=== PATIENT | female | born 1935 | race Hispanic/Latino ===

== ENCOUNTER 2017-08-03 10:06 | Observation (INO) | payer MEDICARE, MEDICAID ==
[2017-08-03] VITALS (9 sets, daily range): BP systolic 111–143; BP diastolic 35–78
[~2017-08-03] VITALS: Ht 160 cm; Wt 83.0 kg
[~2017-08-03 10:06] MED LIST: ACCUPRIL5 MG; ALLEGRA-D 2424 HOUR PO; AMOXICILLIN/CL500 MG PO; ANTIVERT12.5 MG PO; ANTIVERT25 MG PO; ARICEPT10 MG PO; AUGMENTIN500TAB PO; B COMPLETE PO; CRESTOR10 MG PO; DIAZEPAM2 M1 PO; DITROPAN PO; FENTANYL50 MCG/HR TD; FERROUS SULF325 M2 PO; FLEXERIL PO; GABAPENTIN300 MG PO; GLIPIZIDE ER5 MG PO; GLIPIZIDE XL5 MG PO; HYDROCO/APAP1 TA9 PO; KEFLEX500 MG OR; KEFLEX500 MG PO; LAMISIL250 MG PO; LISINOPRIL10 MG PO; LORTAB 5 PO; LORTAB 7.5 PO; LORTAB 7.57.5 MG PO; MECLIZINE25 MG PO; MEDDOSEPAK PO; METFORMIN500 M1 OR; METFORMIN500 M1 PO; METFORMIN500 MG PO; MIRALAX3350 N1 OR; MOTRIN800 MG/TAB PO; NICOTINE T21 MG/241 TD; NORCO1 TA2 PO; NOVOLOG100 IU/1 M SC; OMEPRAZOLE40 MG PO; OXYBUTYNIN5 MG PO; PHENERGAN SUP12.5 MG PO; PHENERGAN25 MG/TAB PO; PREDNISODT10 PO; PREDNISONE10 MG PO; PREDNISONE20 MG PO; PREVACID30 M2 PO; PREVPAC PO; PRILOSEC40 MG PO; PROMETHAZIN1 PO; PROTONIX40 M2 PO; RANITIDINE150 M1 PO; SIMVASTATIN80 MG OR; TEMAZEPAM30 MG PO; TIZANIDINE4 MG PO; TRAMADOL HCL50 MG OR; TRAMADOL HCL50 MG PO; TRUETEST STRIPS VI; VITAMIN C500 M1 PO; XANAX0.5 MG PO; XARELTO15 MG PO; XARELTO20 MG PO; ZOFRAN ODT8 MG PO; ZOFRAN4 M1 PO; [UNRECOGNIZED DRUG - OTHER] XX
[2017-08-03] MEDS ORDERED: HUMALOG100 UNIT/M SC (10:45)
[2017-08-03] MEDS ORDERED: GLIPIZIDE5 MG PO (10:47)
[2017-08-03] MEDS ORDERED: TEMAZEPAM15 MG PO (10:49)
[2017-08-03 11:05] LABS: HEMATOCRIT 26.4 % (37.0-47.0); HEMOGLOBIN 7.7 g/dl (12.0-16.0); IMMATURE GRANULOCYTES 0.5 % (0.0-1.0); MEAN CORPUSCULAR HGB 19.8 pG CALC (26.0-32.0); MEAN CORPUSCULAR HGB CONC 29.2 g/L CALC (32.0-36.0); NEUT# 7.63 thou/uL (2.00-7.15); RED BLOOD COUNT 3.88 mill/uL (4.20-5.60); RED CELL DISTRI WIDTH 18.7 % (11.5-15.5)
[2017-08-03 11:25] LABS: ANION GAP 14 (6-22 (CALC)); BUN 23 mg/dL (8-23); BUN/CREATININE RATIO 28 (12-20 (CALC)); CALCIUM 8.8 mg/dL (8.4-10.2); CARBON DIOXIDE 27 mmol/l (22-30); CHLORIDE 106 mmol/l (95-108); CREATININE 0.8 mg/dL (0.5-1.0); GFR > 60 ML/MIN (>=60 (CALC)); GFR FOR AFR.AMER. > 60 ML/MIN (>=60 (CALC)); GLUCOSE 208 mg/dL (82-115); POTASSIUM 4.6 mmol/l (3.5-5.1); SODIUM 143 mmol/l (137-146)
[2017-08-03 16:57] LABS: URINE BILIRUBIN - DIPSTICK NEGATIVE (NEGATIVE); URINE BLOOD DIPSTICK NEGATIVE (NEGATIVE); URINE CLARITY CLEAR; URINE COLOR YELLOW; URINE GLUCOSE - DIPSTICK NEGATIVE (NEGATIVE); URINE KETONE NEGATIVE (NEGATIVE); URINE LEUK ESTERASE NEGATIVE (Negative); URINE NITRITE - DIPSTICK NEGATIVE (Negative); URINE PROTEIN - DIPSTICK NEGATIVE (NEG-TRACE); URINE SPECIFIC GRAVITY 1.025; URINE UROBILINOGEN - DIPSTICK 0.2 E.U./dL (0.2)
[2017-08-04 05:15] VITALS: BP 117/66
[2017-08-04 05:34] LABS: ALBUMIN 3.6 g/dL (3.2-5.0); ALKALINE PHOSPHATASE 92 u/l (38-126); ANION GAP 13 (6-22 (CALC)); BILIRUBIN, TOTAL 0.7 mg/dL (0.0-1.4); BUN 19 mg/dL (8-23); BUN/CREATININE RATIO 29 (12-20 (CALC)); CALCIUM 8.7 mg/dL (8.4-10.2); CALCULATED LDLCHOLESTEROL 125 mg/dL (62-129 (CALC)); CARBON DIOXIDE 26 mmol/l (22-30); CHLORIDE 107 mmol/l (95-108); CHOLESTEROL HDL RATIO 5.1 (<4.4 (CALC)); CREATININE 0.7 mg/dL (0.5-1.0); GFR > 60 ML/MIN (>=60 (CALC)); GFR FOR AFR.AMER. > 60 ML/MIN (>=60 (CALC)); GLUCOSE 98 mg/dL (82-115); HDL CHOLESTEROL 36 mg/dL (>=40); POTASSIUM 4.5 mmol/l (3.5-5.1); SGOT/AST 22 u/l (9-36); SGPT/ALT 29 u/l (11-66); SODIUM 141 mmol/l (137-146); TOTAL CHOLESTEROL 185 mg/dl (0-199); TOTAL PROTEIN 6.9 g/dL (6.3-8.2); TOTAL TRIGLYCERIDES 115 mg/dl (30-149); VLDL CHOLESTROL 23 mg/dl (0-48 (CALC))
[2017-08-04 05:37] LABS: HEMATOCRIT 34.4 % (37.0-47.0); HEMOGLOBIN 10.9 g/dl (12.0-16.0); IMMATURE GRANULOCYTES 0.7 % (0.0-1.0); MEAN CORPUSCULAR HGB 22.8 pG CALC (26.0-32.0); MEAN CORPUSCULAR HGB CONC 31.7 g/L CALC (32.0-36.0); NEUT# 7.99 thou/uL (2.00-7.15); RED BLOOD COUNT 4.78 mill/uL (4.20-5.60); RED CELL DISTRI WIDTH 21.9 % (11.5-15.5)
[2017-08-04 07:43] VITALS: BP 128/60
[2017-08-04 15:30] VITALS: BP 100/50
[2017-08-04 16:14] LABS: HEMATOCRIT 36.3 % (37.0-47.0); HEMOGLOBIN 11.1 g/dl (12.0-16.0); IMMATURE GRANULOCYTES 0.6 % (0.0-1.0); MEAN CELL VOLUME 73.5 fL CALC (80.0-100.0); MEAN CORPUSCULAR HGB 22.5 pG CALC (26.0-32.0); MEAN CORPUSCULAR HGB CONC 30.6 g/L CALC (32.0-36.0); NEUT# 9.39 thou/uL (2.00-7.15); RED BLOOD COUNT 4.94 mill/uL (4.20-5.60); RED CELL DISTRI WIDTH 22.5 % (11.5-15.5)
[2017-08-04 16:48] LABS: ANION GAP 13 (6-22 (CALC)); BUN 19 mg/dL (8-23); BUN/CREATININE RATIO 28 (12-20 (CALC)); CALCIUM 8.5 mg/dL (8.4-10.2); CARBON DIOXIDE 26 mmol/l (22-30); CHLORIDE 107 mmol/l (95-108); CREATININE 0.7 mg/dL (0.5-1.0); GFR > 60 ML/MIN (>=60 (CALC)); GFR FOR AFR.AMER. > 60 ML/MIN (>=60 (CALC)); GLUCOSE 193 mg/dL (82-115); POTASSIUM 4.2 mmol/l (3.5-5.1); SODIUM 142 mmol/l (137-146)
[2017-08-04 19:19] VITALS: BP 131/68
[2017-08-05] VITALS: BP 137/68
[2017-08-05 05:58] LABS: HEMATOCRIT 31.8 % (37.0-47.0); HEMOGLOBIN 9.6 g/dl (12.0-16.0); IMMATURE GRANULOCYTES 0.6 % (0.0-1.0); MEAN CELL VOLUME 74.1 fL CALC (80.0-100.0); MEAN CORPUSCULAR HGB 22.4 pG CALC (26.0-32.0); MEAN CORPUSCULAR HGB CONC 30.2 g/L CALC (32.0-36.0); NEUT# 8.16 thou/uL (2.00-7.15); RED BLOOD COUNT 4.29 mill/uL (4.20-5.60); RED CELL DISTRI WIDTH 22.5 % (11.5-15.5)
[2017-08-05 06:19] VITALS: BP 119/71
[2017-08-05 06:26] LABS: ANION GAP 12 (6-22 (CALC)); BUN 14 mg/dL (8-23); BUN/CREATININE RATIO 19 (12-20 (CALC)); CALCIUM 8.6 mg/dL (8.4-10.2); CARBON DIOXIDE 24 mmol/l (22-30); CHLORIDE 110 mmol/l (95-108); CREATININE 0.7 mg/dL (0.5-1.0); GFR > 60 ML/MIN (>=60 (CALC)); GFR FOR AFR.AMER. > 60 ML/MIN (>=60 (CALC)); GLUCOSE 93 mg/dL (82-115); POTASSIUM 4.4 mmol/l (3.5-5.1); SODIUM 142 mmol/l (137-146)
[2017-08-05 08:25] VITALS: BP 141/66
[2017-08-05 15:59] VITALS: BP 130/66
[2017-08-05 16:37] LABS: HEMOGLOBIN 9.4 g/dl (12.0-16.0); IMMATURE GRANULOCYTES 0.6 % (0.0-1.0); MEAN CELL VOLUME 73.6 fL CALC (80.0-100.0); MEAN CORPUSCULAR HGB 22.3 pG CALC (26.0-32.0); MEAN CORPUSCULAR HGB CONC 30.3 g/L CALC (32.0-36.0); NEUT# 8.39 thou/uL (2.00-7.15); RED BLOOD COUNT 4.21 mill/uL (4.20-5.60); RED CELL DISTRI WIDTH 22.8 % (11.5-15.5)
[2017-08-05 16:51] LABS: ANION GAP 11 (6-22 (CALC)); BUN 15 mg/dL (8-23); BUN/CREATININE RATIO 18 (12-20 (CALC)); CALCIUM 8.6 mg/dL (8.4-10.2); CARBON DIOXIDE 24 mmol/l (22-30); CHLORIDE 108 mmol/l (95-108); CREATININE 0.9 mg/dL (0.5-1.0); GFR 60 ML/MIN (>=60 (CALC)); GFR FOR AFR.AMER. > 60 ML/MIN (>=60 (CALC)); GLUCOSE 123 mg/dL (82-115); POTASSIUM 4.5 mmol/l (3.5-5.1); SODIUM 139 mmol/l (137-146)
[2017-08-05 18:45] VITALS: BP 143/79
[2017-08-06 04:28] VITALS: BP 138/60
[2017-08-06 06:53] LABS: HEMATOCRIT 34.1 % (37.0-47.0); HEMOGLOBIN 10.4 g/dl (12.0-16.0); IMMATURE GRANULOCYTES 0.5 % (0.0-1.0); MEAN CELL VOLUME 74.1 fL CALC (80.0-100.0); MEAN CORPUSCULAR HGB 22.6 pG CALC (26.0-32.0); MEAN CORPUSCULAR HGB CONC 30.5 g/L CALC (32.0-36.0); NEUT# 9.89 thou/uL (2.00-7.15); RED BLOOD COUNT 4.6 mill/uL (4.20-5.60); RED CELL DISTRI WIDTH 23.2 % (11.5-15.5)
[2017-08-06 07:12] LABS: ALBUMIN 3.6 g/dL (3.2-5.0); ALKALINE PHOSPHATASE 90 u/l (38-126); ANION GAP 13 (6-22 (CALC)); BILIRUBIN, TOTAL 0.7 mg/dL (0.0-1.4); BUN 11 mg/dL (8-23); BUN/CREATININE RATIO 15 (12-20 (CALC)); CALCIUM 8.9 mg/dL (8.4-10.2); CARBON DIOXIDE 27 mmol/l (22-30); CHLORIDE 107 mmol/l (95-108); CREATININE 0.7 mg/dL (0.5-1.0); GFR > 60 ML/MIN (>=60 (CALC)); GFR FOR AFR.AMER. > 60 ML/MIN (>=60 (CALC)); GLUCOSE 132 mg/dL (82-115); POTASSIUM 4.3 mmol/l (3.5-5.1); SGOT/AST 25 u/l (9-36); SGPT/ALT 35 u/l (11-66); SODIUM 142 mmol/l (137-146); TOTAL PROTEIN 6.9 g/dL (6.3-8.2)
[2017-08-06 08:45] VITALS: BP 145/73
== END 2017-08-06 10:15 | disposition home or self-care (01) ==
LOC: MS2 10:06
PROVIDERS: ADMIT Internal Medicine Geriatric Medicine; ATTEND Internal Medicine Geriatric Medicine
PROC: 30233N1 Transfusion of Nonautologous Red Blood Cells into Peripheral Vein, Percutaneous Approach (ICD-10-PCS; principal; 2017-08-03)
PROC: 30233N1 Transfusion of Nonautologous Red Blood Cells into Peripheral Vein, Percutaneous Approach (ICD-10-PCS; 2017-08-03)
DX: D64.9 Anemia, unspecified (principal); I25.10 Atherosclerotic heart disease of native coronary artery without angina pectoris; I10 Essential (primary) hypertension; J44.9 Chronic obstructive pulmonary disease, unspecified; K27.9 Peptic ulcer, site unspecified, unspecified as acute or chronic, without hemorrhage or perforation; F03.90 Unspecified dementia, unspecified severity, without behavioral disturbance, psychotic disturbance, mood disturbance, and anxiety; E11.9 Type 2 diabetes mellitus without complications; R11.2 Nausea with vomiting, unspecified; R10.9 Unspecified abdominal pain; R19.5 Other fecal abnormalities; R06.02 Shortness of breath; Z95.0 Presence of cardiac pacemaker; Z86.711 Personal history of pulmonary embolism; Z79.01 Long term (current) use of anticoagulants
CPT/HCPCS: P9016

== ENCOUNTER 2018-04-01 16:47 | Observation (INO) | payer MEDICARE, MEDICAID ==
[~2018-04-01] VITALS: Ht 160 cm; Wt 84.0 kg
[~2018-04-01 16:47] MED LIST changes: +GLIPIZIDE5 MG PO; +HUMALOG100 UNIT/M SC; +TEMAZEPAM15 MG PO
[2018-04-01 17:42] LABS: HEMATOCRIT 29.6 % (37.0-47.0); HEMOGLOBIN 8.8 g/dl (12.0-16.0); IMMATURE GRANULOCYTES 0.6 % (0.0-1.0); MEAN CELL VOLUME 72.7 fL CALC (80.0-100.0); MEAN CORPUSCULAR HGB 21.6 pG CALC (26.0-32.0); MEAN CORPUSCULAR HGB CONC 29.7 g/L CALC (32.0-36.0); NEUT# 11.98 thou/uL (2.00-7.15); RED BLOOD COUNT 4.07 mill/uL (4.20-5.60); RED CELL DISTRI WIDTH 16.9 % (11.5-15.5)
[2018-04-01] MEDS ORDERED: HYDROCO/APAP1 TA9 PO (17:43)
[2018-04-01] MEDS ORDERED: NAMENDA10 MG PO (17:44)
[2018-04-01] MEDS ORDERED: XARELTO10 MG PO (17:46)
[2018-04-01] MEDS ORDERED: XANAX0.25 MG PO (17:47)
[2018-04-01 17:49] LABS: ALBUMIN 3.9 g/dL (3.2-5.0); ALKALINE PHOSPHATASE 116 u/l (38-126); AMYLASE 76 u/l (30-110); ANION GAP 12 (6-22 (CALC)); BILIRUBIN, TOTAL 0.3 mg/dL (0.0-1.4); BUN 21 mg/dL (8-23); BUN/CREATININE RATIO 30 (12-20 (CALC)); CARBON DIOXIDE 26 mmol/l (22-30); CHLORIDE 102 mmol/l (95-108); CREATININE 0.7 mg/dL (0.5-1.0); GFR > 60 ML/MIN (>=60 (CALC)); GFR FOR AFR.AMER. > 60 ML/MIN (>=60 (CALC)); LIPASE 131 u/l (23-300); POTASSIUM 4.2 mmol/l (3.5-5.1); SGOT/AST 26 u/l (9-36); SGPT/ALT 29 u/l (11-66); SODIUM 136 mmol/l (137-146); TOTAL PROTEIN 7.8 g/dL (6.3-8.2)
[2018-04-01 18:01] LABS: MYOGLOBIN 36 ng/mL (0 - 62)
[2018-04-01 22:50] VITALS: BP 97/48
[2018-04-02] VITALS (10 sets, daily range): BP systolic 95–145; BP diastolic 0–72
[2018-04-02 07:24] LABS: HEMATOCRIT 26.7 % (37.0-47.0); HEMOGLOBIN 7.9 g/dl (12.0-16.0); IMMATURE GRANULOCYTES 0.6 % (0.0-1.0); MEAN CELL VOLUME 73.2 fL CALC (80.0-100.0); MEAN CORPUSCULAR HGB 21.6 pG CALC (26.0-32.0); MEAN CORPUSCULAR HGB CONC 29.6 g/L CALC (32.0-36.0); NEUT# 10.66 thou/uL (2.00-7.15); RED BLOOD COUNT 3.65 mill/uL (4.20-5.60); RED CELL DISTRI WIDTH 16.6 % (11.5-15.5)
[2018-04-02 07:35] LABS: ALKALINE PHOSPHATASE 92 u/l (38-126); ANION GAP 9 (6-22 (CALC)); BILIRUBIN, TOTAL 0.2 mg/dL (0.0-1.4); BUN 18 mg/dL (8-23); BUN/CREATININE RATIO 31 (12-20 (CALC)); CARBON DIOXIDE 28 mmol/l (22-30); CHLORIDE 105 mmol/l (95-108); CREATININE 0.6 mg/dL (0.5-1.0); GFR > 60 ML/MIN (>=60 (CALC)); GFR FOR AFR.AMER. > 60 ML/MIN (>=60 (CALC)); POTASSIUM 4.2 mmol/l (3.5-5.1); SGOT/AST 19 u/l (9-36); SGPT/ALT 30 u/l (11-66); SODIUM 137 mmol/l (137-146); TOTAL PROTEIN 6.3 g/dL (6.3-8.2)
[2018-04-02 17:58] LABS: URINE BILIRUBIN - DIPSTICK NEGATIVE (NEGATIVE); URINE BLOOD DIPSTICK NEGATIVE (NEGATIVE); URINE COLOR YELLOW; URINE GLUCOSE - DIPSTICK 100 mg/dL (NEGATIVE); URINE KETONE NEGATIVE (NEGATIVE); URINE LEUK ESTERASE NEGATIVE (NEGATIVE); URINE NITRITE - DIPSTICK NEGATIVE (Negative); URINE PROTEIN - DIPSTICK NEGATIVE (NEG-TRACE)
[2018-04-02 18:43] LABS: URINE CLARITY CLEAR
[2018-04-03 00:46] VITALS: BP 131/69
[2018-04-03 04:14] VITALS: BP 129/65
[2018-04-03 07:33] VITALS: BP 115/64
[2018-04-03 09:36] LABS: IMMATURE GRANULOCYTES 0.8 % (0.0-1.0); MEAN CORPUSCULAR HGB 24.2 pG CALC (26.0-32.0); MEAN CORPUSCULAR HGB CONC 30.7 g/L CALC (32.0-36.0); NEUT# 12.26 thou/uL (2.00-7.15); RED BLOOD COUNT 4.43 mill/uL (4.20-5.60); RED CELL DISTRI WIDTH 18.6 % (11.5-15.5)
[2018-04-03 09:51] LABS: HEMATOCRIT 34.8 % (37.0-47.0); HEMOGLOBIN 10.7 g/dl (12.0-16.0); MEAN CELL VOLUME 78.6 fL CALC (80.0-100.0)
[2018-04-03 10:55] VITALS: BP 139/65
[2018-04-03 15:04] VITALS: BP 113/59
[2018-04-03 20:04] VITALS: BP 135/75
[2018-04-04 00:29] VITALS: BP 121/60
[2018-04-04 04:51] VITALS: BP 129/83
[2018-04-04 05:05] LABS: HEMATOCRIT 34.6 % (37.0-47.0); HEMOGLOBIN 10.6 g/dl (12.0-16.0); IMMATURE GRANULOCYTES 0.5 % (0.0-1.0); MEAN CELL VOLUME 78.6 fL CALC (80.0-100.0); MEAN CORPUSCULAR HGB 24.1 pG CALC (26.0-32.0); MEAN CORPUSCULAR HGB CONC 30.6 g/L CALC (32.0-36.0); NEUT# 12.27 thou/uL (2.00-7.15); RED BLOOD COUNT 4.4 mill/uL (4.20-5.60); RED CELL DISTRI WIDTH 19.1 % (11.5-15.5)
[2018-04-04 05:40] LABS: ALBUMIN 2.8 g/dL (3.2-5.0); ALKALINE PHOSPHATASE 89 u/l (38-126); ANION GAP 10 (6-22 (CALC)); BILIRUBIN, TOTAL 0.3 mg/dL (0.0-1.4); BUN 10 mg/dL (8-23); BUN/CREATININE RATIO 17 (12-20 (CALC)); CARBON DIOXIDE 28 mmol/l (22-30); CHLORIDE 105 mmol/l (95-108); CREATININE 0.6 mg/dL (0.5-1.0); GFR > 60 ML/MIN (>=60 (CALC)); GFR FOR AFR.AMER. > 60 ML/MIN (>=60 (CALC)); SGOT/AST 17 u/l (9-36); SGPT/ALT 27 u/l (11-66); SODIUM 138 mmol/l (137-146)
[2018-04-04 07:27] VITALS: BP 129/55
[2018-04-04 11:16] VITALS: BP 138/64
[2018-04-04] MEDS ORDERED: NICORETTE2 M1 TOP (13:46)
== END 2018-04-04 14:35 | disposition home or self-care (01) ==
LOC: ED 16:47 → ED-I 20:00 → ED 20:16 → MS2 20:17
PROVIDERS: ADMIT Internal Medicine Geriatric Medicine; ATTEND Internal Medicine Geriatric Medicine
PROC: 30233N1 Transfusion of Nonautologous Red Blood Cells into Peripheral Vein, Percutaneous Approach (ICD-10-PCS; principal; 2018-04-02)
PROC: 30233N1 Transfusion of Nonautologous Red Blood Cells into Peripheral Vein, Percutaneous Approach (ICD-10-PCS; 2018-04-02)
DX: R10.11 Right upper quadrant pain (principal); R11.2 Nausea with vomiting, unspecified; D64.9 Anemia, unspecified; J44.0 Chronic obstructive pulmonary disease with (acute) lower respiratory infection; E11.9 Type 2 diabetes mellitus without complications; I10 Essential (primary) hypertension; I25.10 Atherosclerotic heart disease of native coronary artery without angina pectoris; F17.210 Nicotine dependence, cigarettes, uncomplicated; K21.9 Gastro-esophageal reflux disease without esophagitis; K27.9 Peptic ulcer, site unspecified, unspecified as acute or chronic, without hemorrhage or perforation; M19.90 Unspecified osteoarthritis, unspecified site; E03.9 Hypothyroidism, unspecified; H91.90 Unspecified hearing loss, unspecified ear; F03.90 Unspecified dementia, unspecified severity, without behavioral disturbance, psychotic disturbance, mood disturbance, and anxiety; F32.9 Major depressive disorder, single episode, unspecified; F41.1 Generalized anxiety disorder; Z95.0 Presence of cardiac pacemaker; Z86.711 Personal history of pulmonary embolism; R05 Cough; R06.02 Shortness of breath
CPT/HCPCS: P9016

== ENCOUNTER 2018-04-06 09:36 | Inpatient (IN) | payer MEDICARE, MEDICAID ==
[~2018-04-06] VITALS: Ht 152.4 cm; Wt 81.8 kg
[~2018-04-06 09:36] MED LIST changes: +NAMENDA10 MG PO; +NICORETTE2 M1 TOP; +XANAX0.25 MG PO; +XARELTO10 MG PO
[2018-04-06 10:14] LABS: IMMATURE GRANULOCYTES 0.8 % (0.0-1.0); MEAN CELL VOLUME 76.6 fL CALC (80.0-100.0); MEAN CORPUSCULAR HGB 23.8 pG CALC (26.0-32.0); NEUT# 17.25 thou/uL (2.00-7.15); RED BLOOD COUNT 5.43 mill/uL (4.20-5.60)
[2018-04-06 10:21] LABS: HEMATOCRIT 41.6 % (37.0-47.0); HEMOGLOBIN 12.9 g/dl (12.0-16.0)
[2018-04-06 10:28] LABS: ALKALINE PHOSPHATASE 113 u/l (38-126); ANION GAP 17 (6-22 (CALC)); BILIRUBIN, TOTAL 0.5 mg/dL (0.0-1.4); BUN 13 mg/dL (8-23); BUN/CREATININE RATIO 26 (12-20 (CALC)); CARBON DIOXIDE 27 mmol/l (22-30); CHLORIDE 97 mmol/l (95-108); CREATININE 0.5 mg/dL (0.5-1.0); GFR > 60 ML/MIN (>=60 (CALC)); GFR FOR AFR.AMER. > 60 ML/MIN (>=60 (CALC)); LIPASE 36 u/l (23-300); POTASSIUM 3.8 mmol/l (3.5-5.1); SGOT/AST 26 u/l (9-36); SGPT/ALT 37 u/l (11-66); SODIUM 137 mmol/l (137-146)
[2018-04-06 10:31] LABS: ALBUMIN 3.8 g/dL (3.2-5.0); TOTAL PROTEIN 7.3 g/dL (6.3-8.2)
[2018-04-06 10:40] LABS: MYOGLOBIN 24 ng/mL (0 - 62)
[2018-04-06 15:00] VITALS: BP 114/58
[2018-04-06 18:00] VITALS: BP 110/50
[2018-04-06 18:56] LABS: HEMATOCRIT 43.9 % (37.0-47.0); HEMOGLOBIN 13.6 g/dl (12.0-16.0); IMMATURE GRANULOCYTES 0.8 % (0.0-1.0); MEAN CELL VOLUME 76.5 fL CALC (80.0-100.0); MEAN CORPUSCULAR HGB 23.7 pG CALC (26.0-32.0); PLATELET COUNT 383 thou/uL (130-400); RED BLOOD COUNT 5.74 mill/uL (4.20-5.60); RED CELL DISTRI WIDTH 21.6 % (11.5-15.5)
[2018-04-06 19:22] LABS: BAND 18 % (0-8)
[2018-04-06 19:27] LABS: MANUAL DIFFERENTIAL YES
[2018-04-06 19:35] LABS: HEMATOCRIT 44.2 % (37.0-47.0); HEMOGLOBIN 13.7 g/dl (12.0-16.0); IMMATURE GRANULOCYTES 0.6 % (0.0-1.0); MEAN CELL VOLUME 76.5 fL CALC (80.0-100.0); MEAN CORPUSCULAR HGB 23.7 pG CALC (26.0-32.0); PLATELET COUNT 371 thou/uL (130-400); RED BLOOD COUNT 5.78 mill/uL (4.20-5.60); RED CELL DISTRI WIDTH 21.9 % (11.5-15.5)
[2018-04-06 19:37] LABS: MANUAL DIFFERENTIAL YES
[2018-04-06 19:47] LABS: ANION GAP 18 (6-22 (CALC)); BUN 20 mg/dL (8-23); BUN/CREATININE RATIO 27 (12-20 (CALC)); CARBON DIOXIDE 21 mmol/l (22-30); CHLORIDE 100 mmol/l (95-108); CREATININE 0.7 mg/dL (0.5-1.0); GFR > 60 ML/MIN (>=60 (CALC)); GFR FOR AFR.AMER. > 60 ML/MIN (>=60 (CALC)); POTASSIUM 4.2 mmol/l (3.5-5.1); SODIUM 135 mmol/l (137-146)
[2018-04-06 19:52] LABS: BAND 16 % (0-8)
[2018-04-06 20:06] VITALS: BP 98/49
[2018-04-06 21:14] LABS: URINE BILIRUBIN - DIPSTICK NEGATIVE (NEGATIVE); URINE BLOOD DIPSTICK SMALL (NEGATIVE); URINE CLARITY CLEAR; URINE COLOR YELLOW; URINE GLUCOSE - DIPSTICK 250 mg/dL (NEGATIVE); URINE KETONE 15 mg/dL (NEGATIVE); URINE LEUK ESTERASE NEGATIVE (NEGATIVE); URINE NITRITE - DIPSTICK NEGATIVE (Negative); URINE PROTEIN - DIPSTICK 100 mg/dL (NEG-TRACE); URINE SPECIFIC GRAVITY 1.015; URINE UROBILINOGEN - DIPSTICK 0.2 E.U./dL (0.2)
[2018-04-06 21:24] LABS: URINE SQUAMOUS EPITHELIAL CELL FEW EPI/hpf (0-FEW); URINE WBC 0-2 WBC/hpf (0-5)
[2018-04-06 22:05] VITALS: BP 82/49
[2018-04-06 22:10] VITALS: BP 76/49
== END 2018-04-06 23:12 | DRG 379 ==
LOC: ED 09:36 → ED-I 13:57 → ED 14:16 → ICU 14:17
PROVIDERS: Emergency Medicine; ADMIT Internal Medicine Geriatric Medicine; ATTEND Internal Medicine Geriatric Medicine
DX: K27.4 Chronic or unspecified peptic ulcer, site unspecified, with hemorrhage (principal); J44.9 Chronic obstructive pulmonary disease, unspecified; I12.9 Hypertensive chronic kidney disease with stage 1 through stage 4 chronic kidney disease, or unspecified chronic kidney disease; E11.22 Type 2 diabetes mellitus with diabetic chronic kidney disease; N18.9 Chronic kidney disease, unspecified; K21.9 Gastro-esophageal reflux disease without esophagitis; I25.10 Atherosclerotic heart disease of native coronary artery without angina pectoris; E03.9 Hypothyroidism, unspecified; M19.90 Unspecified osteoarthritis, unspecified site; H91.90 Unspecified hearing loss, unspecified ear; D64.9 Anemia, unspecified; F41.9 Anxiety disorder, unspecified; F17.210 Nicotine dependence, cigarettes, uncomplicated; Z95.0 Presence of cardiac pacemaker; Z86.711 Personal history of pulmonary embolism
CPT/HCPCS: Q9967; S0164